=== PATIENT | male | born 1985 | race Asian ===

== ENCOUNTER 2019-05-21 18:19 | Emergency (ER) | payer BC ==
[~2019-05-21] VITALS: Ht 170.2 cm; Wt 72.0 kg
[2019-05-21] MEDS ORDERED: IV NORMAL SALINE 1000ML BAG 1,000 ML IV SCH (18:53)
[2019-05-21 19:00] LABS: BASO % 1 % (0-3); EOS # 0.1 x10^3/uL (0.0-0.7); EOS % 2 % (0-3); HEMATOCRIT 40.7 % (39.0-53.0); HEMOGLOBIN 13.9 g/dL (13.0-17.5); LYMPH # 2.6 x10^3/uL (1.0-4.8); LYMPH % 39 % (24-48); MEAN CORPUSCULAR HEMOGLOBIN 32 pg (25-35); MEAN CORPUSCULAR HGB CONC 34 g/dL (31-37); MEAN CORPUSCULAR VOLUME 93 fL (79-100); MONO # 0.5 x10^3/uL (0.0-1.1); MONO % 7 % (0-9); NEUT # 3.5 x10^3/uL (1.8-7.7); NEUT % 51 % (31-73); PLATELET COUNT 294 x10^3/uL (140-400); RED BLOOD COUNT 4.38 x10^6/uL (4.30-5.70); RED CELL DISTRIBUTION WIDTH 12.6 % (11.5-14.5); WHITE BLOOD COUNT 6.8 x10^3/uL (4.0-11.0)
[2019-05-21 19:09] LABS: PROTHROMBIN TIME PATIENT 11.2 SEC (11.7-14.0)
[2019-05-21 19:12] LABS: CALCIUM 8.8 mg/dL (8.5-10.1); CREATININE 1.3 mg/dL (0.7-1.3); POTASSIUM 3.3 mmol/L (3.5-5.1)
--- NOTE | 2019-05-21 19:22 | RAD ---
Portable AP chest 05/21/2019. Reason for exam: Palpitations. There is some opacity along the left cardiac margin probably representing some pleural thickening. The lungs otherwise appear clear and no pleural fluid is seen. Heart size is normal. IMPRESSION: There is probably some left-sided pleural thickening adjacent to the heart. No acute infiltrate or pulmonary edema is seen. Electronically signed by: Wally Shah Jr., MD (05/21/2019 7:20 PM) [id number]
[2019-05-21 19:26] LABS: ALBUMIN/GLOBULIN RATIO 1.2 (1.0-1.7); MAGNESIUM 1.6 mg/dL (1.8-2.4); TOTAL BILIRUBIN 0.3 mg/dL (0.2-1.0); TOTAL PROTEIN 7.3 g/dL (6.4-8.2)
[2019-05-21 19:56] LABS: BILIRUBIN,URINE NEGATIVE (NEG); CLARITY,URINE CLEAR; COLOR,URINE YELLOW; NITRITE,URINE NEGATIVE (NEG); PROTEIN,URINE NEGATIVE (NEG-TRACE); UROBILINOGEN,URINE 0.2 mg/dL (0.2 mg/dL)
[2019-05-21 20:00] LABS: BACTERIA,URINE 0 /HPF (0-FEW); RBC,URINE 0 /HPF (0-2); WBC,URINE 0 /HPF (0-4)
[2019-05-21 20:03] LABS: AMPHETAMINE/METHAMPHETAMINE NEG (NEG); BARBITURATES NEG (NEG); BENZODIAZEPINES NEG (NEG); CANNABINOIDS POS (NEG); COCAINE NEG (NEG); METHADONE NEG (NEG); OPIATES NEG (NEG); PHENCYCLIDINE NEG (NEG)
[2019-05-21] MEDS ORDERED: POTASSIUM CHLORIDE 20 MEQ TABLET.ER. PO ONE (20:30)
[2019-05-21] MEDS ORDERED: MAGNESIUM OXIDE 400 MG TABLET PO SCH (20:30)
--- NOTE | 2019-05-21 20:31 | PHYS DOC ---
Past Medical History Past Medical History: No Pertinent History Past Surgical History: No Surgical History Alcohol Use: Occasionally Adult General Chief Complaint Chief Complaint: RAPID HEART RATE HPI HPI Patient is a 33 year old male without history of medical problem who presents with complaint of palpitation. Patient states he had several beers today before starting a barking and felt palpitation stated left-sided chest tightness, num bness of his hand and shortness of breath that started about an hour prior to arrival to ER. Patient states he usually doesn't drink that amount of alcohol and denies using the right breast smoking cigarettes. Patient does not have cardiac risk factors. Review of Systems Review of Systems Constitutional: Denies fever or chills [] Eyes: Denies change in visual acuity, redness, or eye pain [] HENT: Denies nasal congestion or sore throat [] Respiratory: Denies cough, reports shortness of breath [] Cardiovascular: No additional information not addressed in HPI [] GI: Denies abdominal pain, nausea, vomiting, bloody stools or diarrhea [] : Denies dysuria or hematuria [] Musculoskeletal: Denies back pain or joint pain [] Integument: Denies rash or skin lesions [] Neurologic: Denies headache, focal weakness or sensory changes [] Endocrine: Denies polyuria or polydipsia [] All other systems were reviewed and found to be within normal limits, except as documented in this note. Current Medications Current Medications Current Medications Medications (Trade) Dose Ordered Sig/Deb Start Time Stop Time Status Last Admin Dose Admin Magnesium Oxide (Magnesium Oxide) 400 mg DAILY 05/21/19 20:30 05/21/19 21:17 DC 05/21/19 20:30 400 MG Potassium Chloride (Klor-Con) 40 meq 1X ONCE 05/21/19 20:30 05/21/19 20:31 DC 05/21/19 20:30 40 MEQ Sodium Chloride 1,000 ml @ 1,000 mls/hr Q1H 05/21/19 18:53 05/21/19 19:52 DC 05/21/19 18:53 1,000 MLS/HR Allergies Allergies Allergies Coded Allergies Type Severity Reaction Last Updated Verified No Known Drug Allergies 05/21/19 No Physical Exam Physical Exam Constitutional: Well developed, well nourished, mildistress, non-toxic appearance. [] HENT: Normocephalic, atraumatic, bilateral external ears normal, oropharynx moist, no oral exudates, nose normal. [] Eyes: PERRLA, EOMI, conjunctiva normal, no discharge. [] Neck: Normal range of motion, no tenderness, supple, no stridor. [] Cardiovascular: Tachycardia, no murmur [] Lungs & Thorax: Bilateral breath sounds clear to auscultation [] Abdomen: Bowel sounds normal, soft, no tenderness, no masses, no pulsatile masses. [] Skin: Warm, dry, no erythema, upper chest and back erythematous rash Back: No tenderness, no CVA tenderness. [] Extremities: No tenderness, no cyanosis, no clubbing, ROM intact, no edema. [] Neurologic: Alert and oriented X 3, normal motor function, normal sensory function, no focal deficits noted. [] Psychologic: Affect normal, judgement normal, mood normal. [] Current Patient Data Vital Signs Vital Signs Date Time Temp Pulse Resp B/P (MAP) Pulse Ox O2 Delivery O2 Flow Rate FiO2 05/21/19 20:34 110 18 98 05/21/19 18:30 98.7 164/99 (120) Room Air 98.7 Lab Values Laboratory Tests Test 05/21/19 18:50 05/21/19 19:45 White Blood Count 6.8 x10^3/uL (4.0-11.0) Red Blood Count 4.38 x10^6/uL (4.30-5.70) Hemoglobin 13.9 g/dL (13.0-17.5) Hematocrit 40.7 % (39.0-53.0) Mean Corpuscular Volume 93 fL (79-100) Mean Corpuscular Hemoglobin 32 pg (25-35) Mean Corpuscular Hemoglobin Concent 34 g/dL (31-37) Red Cell Distribution Width 12.6 % (11.5-14.5) Platelet Count 294 x10^3/uL (140-400) Neutrophils (%) (Auto) 51 % (31-73) Lymphocytes (%) (Auto) 39 % (24-48) Monocytes (%) (Auto) 7 % (0-9) Eosinophils (%) (Auto) 2 % (0-3) Basophils (%) (Auto) 1 % (0-3) Neutrophils # (Auto) 3.5 x10^3/uL (1.8-7.7) Lymphocytes # (Auto) 2.6 x10^3/uL (1.0-4.8) Monocytes # (Auto) 0.5 x10^3/uL (0.0-1.1) Eosinophils # (Auto) 0.1 x10^3/uL (0.0-0.7) Basophils # (Auto) 0.0 x10^3/uL (0.0-0.2) Prothrombin Time 11.2 SEC (11.7-14.0) L Prothrombin Time INR 0.8 (0.8-1.1) Sodium Level 141 mmol/L (136-145) Potassium Level 3.3 mmol/L (3.5-5.1) L Chloride Level 103 mmol/L (98-107) Carbon Dioxide Level 25 mmol/L (21-32) Anion Gap 13 (6-14) Blood Urea Nitrogen 17 mg/dL (8-26) Creatinine 1.3 mg/dL (0.7-1.3) Estimated GFR (Cockcroft-Gault) 64.0 BUN/Creatinine Ratio 13 (6-20) Glucose Level 144 mg/dL (70-99) H Calcium Level 8.8 mg/dL (8.5-10.1) Magnesium Level 1.6 mg/dL (1.8-2.4) L Total Bilirubin 0.3 mg/dL (0.2-1.0) Aspartate Amino Transferase (AST) 40 U/L (15-37) H Alanine Aminotransferase (ALT) 51 U/L (16-63) Alkaline Phosphatase 98 U/L (46-116) Creatine Kinase 1337 U/L (39-308) H Troponin I Quantitative < 0.017 ng/mL (0.000-0.055) Total Protein 7.3 g/dL (6.4-8.2) Albumin 4.0 g/dL (3.4-5.0) Albumin/Globulin Ratio 1.2 (1.0-1.7) Lipase 205 U/L (73-393) Thyroid Stimulating Hormone (TSH) 0.532 uIU/mL (0.358-3.74) Ethyl Alcohol Level 95 mg/dL (0-10) H Urine Collection Type Unknown Urine Color Yellow Urine Clarity Clear Urine pH 5.0 Urine Specific [place] 1.020 Urine Protein Negative mg/dL (NEG-TRACE) Urine Glucose (UA) Negative mg/dL (NEG) Urine Ketones (Stick) Negative mg/dL (NEG) Urine Blood Negative (NEG) Urine Nitrite Negative (NEG) Urine Bilirubin Negative (NEG) Urine Urobilinogen Dipstick 0.2 mg/dL (0.2 mg/dL) Urine Leukocyte Esterase Negative (NEG) Urine RBC 0 /HPF (0-2) Urine WBC 0 /HPF (0-4) Urine Bacteria 0 /HPF (0-FEW) Urine Mucus Mod /LPF Urine Opiates Screen Neg (NEG) Urine Methadone Screen Neg (NEG) Urine Barbiturates Neg (NEG) Urine Phencyclidine Screen Neg (NEG) Urine Amphetamine/Methamphetamine Neg (NEG) Urine Benzodiazepines Screen Neg (NEG) Urine Cocaine Screen Neg (NEG) Urine Cannabinoids Screen Pos (NEG) Urine Ethyl Alcohol Pos (NEG) Laboratory Tests 05/21/19 18:50 Laboratory Tests 05/21/19 18:50 EKG EKG EKG interpreted by me. EKG at 1840 showed sinus tachycardia at rate of 120, normal NC and QT intervals, no acute ST and T-wave elevation. Radiology/Procedures Radiology/Procedures [facility] [address] [place] [address] IMAGING REPORT Signed PATIENT: LISA LOPEZ ACCOUNT: [id number] : 1985 LOCATION: ER AGE: 33 SEX: M EXAM STATUS: PRE ER ORD. PHYSICIAN: SHEYLA CONTRERAS MD REASON: palpitation PROCEDURE: PORTABLE CHEST 1V Portable AP chest 05/21/2019. Reason for exam: Palpitations. There is some opacity along the left cardiac margin probably representing some pleural thickening. The lungs otherwise appear clear and no pleural fluid is seen. Heart size is normal. IMPRESSION: There is probably some left-sided pleural thickening adjacent to the heart. No acute infiltrate or pulmonary edema is seen. Electronically signed by: Esteban Kebede Jr., MD (05/21/2019 7:20 PM) [id number] DICTATED and SIGNED BY: ESTEBAN KEBEDE Jr, MD DATE: 05/21/191919 Course & Med Decision Making Course & Med Decision Making Pertinent Labs and Imaging studies reviewed. (See chart for details) Evaluation of patient in ER showed 33-year-old male patient with complaining of palpitation after drinking several beers. Patient had unremarkable physical exam except for mild anxiety and tachycardia that improved with IV fluid and rest. Labs was unremarkable except for blood alcohol of 95 and positive UDS for marijuana. Patient was advised to avoid of using drugs and alcohol and follow up with his primary care physician and increase fluid intake. I've spoken with the patient and/or caregivers. I've explained the patient's condition, diagnosis and treatment plan based on information available to me at this time. I've answered the patient's and/or caregivers questions and addressed any concerns. The patient and/or caregivers have a good understanding the patient's diagnosis, condition and treatment plan as can be expected at this point. Vital signs have been stabilized. The patient's condition is stable for discharge from the emergency department. The patient will pursue further outpatient evaluation with her primary care provider or other designated consulting physician as outlined in the discharge instructions. Patient and/or caregivers are agreeable to this plan of care and follow-up instructions have been explained in detail. The patient and/or caregivers have received these instructions in written format and expressed understanding of these discharge instructions. The patient and her caregivers are aware that if any significant change in condition or worsening of symptoms should prompt him to immediately return to this of the closest emergency department. If an emergent department is not readily available I would encourage him to call 911. Bela Disclaimer Bela Disclaimer This electronic medical record was generated, in whole or in part, using a voice recognition dictation system. Departure Departure Impression: Primary Impression: Panic attack Additional Impressions: Palpitation Hypomagnesemia Hypokalemia Rhabdomyolysis Marijuana abuse Disposition: HOME, SELF-CARE (at 2030) Condition: IMPROVED Referrals: NO PCP (PCP) Patient Instructions: Anxiety and Panic Attacks, Hypokalemia, Hypomagnesemia, Palpitations, Rhabdomyolysis Additional Instructions: Drink plenty of liquids Follow-up with your primary care physician in 3-5 days Return to ER if not getting better Thank you for visiting [facility]. We appreciate you trusting us with your care. If any additional problems come up don't hesitate to return to visit us. Please follow up with your primary care provider so they can plan additional care if needed and know about the problem that you had. If symptoms worsen come back to the Emergency Department. Any concerning symptoms that start such as chest pain, shortness of air, weakness or numbness on one side of the body, running high fevers or any other concerning symptoms return to the ER. Problem Qualifiers Additional Impressions: Rhabdomyolysis Rhabdomyolysis type: non-traumatic Qualified Codes: M62.82 - Rhabdomyolysis SHEYLA CONTRERAS MD May 21, 2019 20:31
[2019-05-21 20:34] VITALS: BP 129/77
--- NOTE | 2019-05-22 08:59 | EKG ---
[facility] [address] [place] [address] Test Date: 2019-05-21 Test Time: 18:40:42 Pat Name: LISA LOPEZ Department: Room: Gender: M Political Advisor: : 1985 Requested By: SHEYLA CONTRERAS Order Number: [id number] Reading MD: Measurements Intervals [place] Rate: 119 P: 49 W[place]: 150 QRS: 83 QRSD: 92 T: 52 QT: 300 QTc: 428 Interpretive Statements SINUS TACHYCARDIA OTHERWISE NORMAL ECG No previous ECG available for comparison
== END 2019-05-21 20:45 | disposition home or self-care (01) ==
LOC: ER 18:19
DX: F41.0 Panic disorder [episodic paroxysmal anxiety] (principal); R00.2 Palpitations; E83.42 Hypomagnesemia; E87.6 Hypokalemia; M62.82 Rhabdomyolysis; F12.90 Cannabis use, unspecified, uncomplicated; R07.89 Other chest pain
CPT/HCPCS: 36415; 71045; 80053; 80307; 81001; 82550; 83690; 83735; 84443; 84484; 85025; 85610; 93005; 96360; 99285; G0480; J7030